=== PATIENT | female | born 1965 | race Caucasian/White ===

== ENCOUNTER 2016-10-07 09:56 | Emergency (ER) | payer OTHER ==
[~2016-10-07 09:56] MED LIST: CIPRO250 MG PO; CIPROFLOXACIN500 MG PO; DIFLUCAN150 MG PO; ELIMITE 5%60 GM PO; VICODIN 5/500 505 MG PO; ZOFRAN ODT4 MG SL
[2016-10-07 10:00] VITALS: BP 150/90
[2016-10-07] MEDS ORDERED: ADDERALL 20 MG20 MG PO (10:16)
[2016-10-07] MEDS ORDERED: Meclizine25 MG PO (10:19)
[2016-10-07 10:41] LABS: BASO # 0.1 10*3/uL (0.0-0.1); BASO % 0.4 % (0.0-1.0); EOS # 0.1 10*3/uL (0.0-0.4); EOS % 0.5 % (1.0-4.0); HEMATOCRIT 48.9 % (37.0-47.0); LYMPH # 2.3 10*3/uL (1.3-4.4); LYMPH % 15.2 % (27.0-41.0); MEAN CELL VOLUME 89.1 fl (81.0-99.0); MEAN CORPUSCULAR HGB CONC 34.8 g/dl (33.0-37.0); MEAN PLATELET VOLUME 9.9 fl (9.6-12.3); MONO % 6.3 % (3.0-9.0); NEUT # 11.7 10*3/uL (2.3-7.9); NEUT % 77.3 % (47.0-73.0); PLATELET COUNT AUTOMATED 363 10*3/uL (130-400); RED BLOOD COUNT 5.49 10*6/uL (4.10-5.10); RED CELL DISTRI WIDTH 12.7 % (0-14.5); WHITE BLOOD COUNT 15.2 10*3/uL (4.8-10.8)
[2016-10-07 11:30] LABS: ALBUMIN 3.4 gm/dl (3.1-4.5); ALKALINE PHOSPHATASE 80 U/L (45-117); BUN 30 mg/dl (7-24); CHLORIDE 101 mmol/L (98-107); CREATININE 0.88 mg/dL (0.55-1.02); POTASSIUM 4.1 mmol/L (3.5-5.1); SGOT/AST 13 IU/L (3-35); SGPT/ALT 16 U/L (12-78); SODIUM 140 mmol/L (136-145); TOTAL PROTEIN 7.3 gm/dL (6.4-8.2)
[2016-10-07 11:58] LABS: BILIRUBIN 1+ (NEGATIVE); BLOOD NEGATIVE (NEGATIVE); CLARITY SL CLOUDY (CLEAR); COLOR YELLOW (YELLOW); GLUCOSE NEGATIVE (NEGATIVE); KETONE 2+ (NEGATIVE); LEUKO ESTERASE NEGATIVE (NEGATIVE); NITRITE NEGATIVE (NEGATIVE)
[2016-10-07 12:10] LABS: BACTERIA 2+; CALCIUM OXALATE CRYSTALS 1+; MUCOUS 1+
[2016-10-07] MEDS ORDERED: ZOFRAN ODT4 MG SL (14:35)
== END 2016-10-07 14:55 | disposition home or self-care (01) ==
LOC: ED 09:56
PROVIDERS: Nurse Practitioner Family
DX: K29.00 Acute gastritis without bleeding (principal); Z88.0 Allergy status to penicillin; Z79.899 Other long term (current) drug therapy; F17.200 Nicotine dependence, unspecified, uncomplicated

== ENCOUNTER 2017-03-08 11:08 | Emergency (ER) | payer OTHER ==
[~2017-03-08] VITALS: Ht 162.5 cm; Wt 49.9 kg
[~2017-03-08 11:08] MED LIST changes: +ADDERALL 20 MG20 MG PO; +Meclizine25 MG PO
[2017-03-08 12:35] VITALS: BP 130/78
== END 2017-03-08 12:35 | disposition home or self-care (01) ==
LOC: ED 11:08
DX: S86.812A Strain of other muscle(s) and tendon(s) at lower leg level, left leg, initial encounter (principal); Z98.51 Tubal ligation status; Z90.89 Acquired absence of other organs; Z79.899 Other long term (current) drug therapy; Z88.0 Allergy status to penicillin; X50.1XXA Overexertion from prolonged static or awkward postures, initial encounter; Y93.89 Activity, other specified; Y92.89 Other specified places as the place of occurrence of the external cause; Y99.9 Unspecified external cause status

== ENCOUNTER 2017-03-20 17:48 | Emergency (ER) | payer OTHER ==
[~2017-03-20] VITALS: Ht 162.5 cm; Wt 50.8 kg
[2017-03-20 18:12] VITALS: BP 129/81
[2017-03-20] MEDS ORDERED: ROBITUSSIN DM 105 ML PO (18:39)
[2017-03-20] MEDS ORDERED: PREDNISONE10 MG PO (18:39)
[2017-03-20] MEDS ORDERED: CLARITIN10 MG PO (18:39)
[2017-03-20] MEDS ORDERED: FLONASE ALLERG9.9 ML NAS (18:39)
== END 2017-03-20 19:12 | disposition home or self-care (01) ==
LOC: ED 17:48
DX: B34.9 Viral infection, unspecified (principal); R03.0 Elevated blood-pressure reading, without diagnosis of hypertension; F17.200 Nicotine dependence, unspecified, uncomplicated; Z98.51 Tubal ligation status; Z90.89 Acquired absence of other organs; Z88.0 Allergy status to penicillin; Z79.899 Other long term (current) drug therapy

== ENCOUNTER → 2017-09-03 | Outpatient (CLI) | payer OTHER ==
[~2017-09-03] MED LIST changes: +CLARITIN10 MG PO; +FLONASE ALLERG9.9 ML NAS; +PREDNISONE10 MG PO; +ROBITUSSIN DM 105 ML PO
--- NOTE | ~2017-09-03 | EKG ---
[place], [place] ELECTROCARDIOGRAM REPORT NAME: MARK VASQUEZ UNIT #: [id number] ROOM: DOCTOR: NORMA DRAFT REPORT BIRTHDATE: [birth year] [facility] Test Date: 2017-09-03 Test Time: 13:43:46 Pat Name: MARK VASQUEZ Department: Room: Gender: F [employer]: : [id number] Requested By: SONJA GARZA Order Number: [id number] Reading MD: Sofía Garcia MD Measurements Intervals Page Rate: 63 P: 76 AL: 164 QRS: 59 QRSD: 73 T: 66 QT: 415 QTc: 425 Interpretive Statements Sinus rhythm Probable left atrial enlargement Electronically Signed On 09-05-2017 11:05:51 PDT by Sofía Garcia MD CM:EKGRPT:ELECTROCARDIOGRAM REPORT [id number] SONJA GREEN DRAFT REPORT SONJA GARZA
== END ==
LOC: CARD 13:34
DX: Z51.81 Encounter for therapeutic drug level monitoring (principal); Z79.899 Other long term (current) drug therapy

== ENCOUNTER 2018-12-29 00:54 | Emergency (ER) | payer OTHER ==
[~2018-12-29] VITALS: Ht 162.5 cm; Wt 55.3 kg
[2018-12-29 01:27] LABS: BASO # 0.1 10*3/uL (0.0-0.1); BASO % 1.2 % (0.0-1.0); EOS % 12.5 % (1.0-4.0); HEMATOCRIT 46.7 % (37.0-47.0); HEMOGLOBIN 15.8 g/dl (12.0-16.0); LYMPH # 2.8 10*3/uL (1.3-4.4); LYMPH % 36.7 % (27.0-41.0); MEAN CELL VOLUME 92.1 fl (81.0-99.0); MEAN CORPUSCULAR HGB 31.2 pg (27.0-31.0); MEAN CORPUSCULAR HGB CONC 33.8 g/dl (33.0-37.0); MEAN PLATELET VOLUME 9.9 fl (9.6-12.3); MONO # 0.9 10*3/uL (0.1-1.0); MONO % 11.1 % (3.0-9.0); NEUT % 38.2 % (47.0-73.0); PLATELET COUNT AUTOMATED 376 10*3/uL (130-400); RED BLOOD COUNT 5.07 10*6/uL (4.10-5.10); RED CELL DISTRI WIDTH 13.4 % (0-14.5); WHITE BLOOD COUNT 7.7 10*3/uL (4.8-10.8)
[2018-12-29 01:43] LABS: ALBUMIN 3.8 gm/dl (3.1-4.5); ALKALINE PHOSPHATASE 112 U/L (45-117); BUN 22 mg/dl (7-24); CHLORIDE 110 mmol/L (98-107); CREATININE 0.96 mg/dL (0.55-1.02); POTASSIUM 4.5 mmol/L (3.5-5.1); SGOT/AST 194 IU/L (3-35); SGPT/ALT 217 U/L (12-78); SODIUM 141 mmol/L (136-145); TOTAL PROTEIN 7.6 gm/dL (6.4-8.2)
[2018-12-29 01:45] VITALS: BP 126/72
[2018-12-29] MEDS ORDERED: PREDNISONE10 M1 PO (01:56)
[2018-12-29] MEDS ORDERED: PROAIR HFA8.5 GM INH (01:56)
[2018-12-29] MEDS ORDERED: Ventolin 02.5 MG/3 M INH (01:56)
== END 2018-12-29 01:59 | disposition home or self-care (01) ==
LOC: ED 00:54
PROVIDERS: Emergency Medicine
DX: J45.901 Unspecified asthma with (acute) exacerbation (principal); Z87.891 Personal history of nicotine dependence; Z88.0 Allergy status to penicillin; Z79.899 Other long term (current) drug therapy

== ENCOUNTER 2019-02-26 11:39 | Emergency (ER) | payer OTHER ==
[~2019-02-26] VITALS: Ht 162.5 cm; Wt 58.1 kg
[~2019-02-26 11:39] MED LIST changes: +PREDNISONE10 M1 PO; +PROAIR HFA8.5 GM INH; +Ventolin 02.5 MG/3 M INH
[2019-02-26 11:48] VITALS: BP 135/85
[2019-02-26] MEDS ORDERED: DOXYCYCLINE100 M3 PO (12:31)
[2019-02-26] MEDS ORDERED: FLONASE ALLERG9.9 ML NAS (12:31)
== END 2019-02-26 12:23 | disposition home or self-care (01) ==
LOC: ED 11:39
DX: L02.01 Cutaneous abscess of face (principal); J30.9 Allergic rhinitis, unspecified; Z88.0 Allergy status to penicillin; Z79.899 Other long term (current) drug therapy

== ENCOUNTER → 2019-12-07 | Outpatient (CLI) | payer OTHER ==
[~2019-12-07] MED LIST changes: +DOXYCYCLINE100 M3 PO
== END | disposition home or self-care (01) ==
LOC: CARD 11:23
DX: Z79.899 Other long term (current) drug therapy (principal)